=== PATIENT | female | born 1950 | race Caucasian/White ===

== ENCOUNTER 2017-06-02 09:24 | Emergency (ER) | payer SELFPAY ==
[~2017-06-02] VITALS: Ht 157.5 cm; Wt 93.0 kg
[2017-06-02] MEDS ORDERED: IBUPROFEN 200 MG TABLET ONE (10:56)
[2017-06-02] MEDS ORDERED: IBUPROFEN 200 MG TABLET PO ONE (11:00)
[2017-06-02 12:36] LABS: HEMATOCRIT 37.3 % (34.6-47.8); HEMOGLOBIN 12.4 g/dL (11.7-16.4); WHITE BLOOD COUNT 6.4 x10^3/uL (3.4-10)
[2017-06-02 12:42] LABS: BLOOD UREA NITROGEN 15 mg/dL (7-18)
[2017-06-02 12:45] LABS: ASPARTATE AMINO TRANSFERASE 25 U/L (15-37)
[2017-06-02 13:33] VITALS: BP 153/74
== END 2017-06-02 13:37 | disposition home or self-care (01) ==
LOC: ED 13:28
DX: M54.9 Dorsalgia, unspecified (principal); E11.9 Type 2 diabetes mellitus without complications
CPT/HCPCS: 36415; 74176; 80053; 81003; 83690; 85025; 99284